=== PATIENT | female | born 1985 | race Caucasian/White ===

== ENCOUNTER 2024-05-29 17:53 | Emergency (ER) | payer BC, SELFPAY ==
[2024-05-29 17:56] VITALS: BP 152/104
[2024-05-29 18:15] LABS: % Basophils 0.3 % (0-2); % Eosinophils 1.3 % (0-6); % Immature Granulocytes 0.5 % (0-0.5); % Lymphocytes 25.8 % (20.5-51.1); % Monocytes 11.1 % (1.7-9.3); Absolute Eosinophils 0.1 10^3/uL (0-0.7); Absolute Lymphocytes 1.6 10^3/uL (1.2-3.4); Absolute Monocytes 0.7 10^3/uL (0.1-0.6); Absolute Neutrophils 3.9 10^3/uL (1.4-6.5); Hematocrit 32.5 % (37.0-47.0); Hemoglobin 10.5 g/dL (12.0-16.0); Mean Corp Hgb Conc. 32.3 g/dL (33.0-37.0); Mean Corpuscular Hgb 28.5 pg (27.0-31.0); Mean Corpuscular Volume 88.1 fL (81.0-99.0); Mean Platelet Volume 8.6 fL (7.4-10.4); Nucleated Red Blood Cells % 0 %; Platelet Count 292 10^3/uL (130-400); Red Blood Cell Count 3.69 10^6/uL (4.20-5.40); Red Cell Dist. Width 15.3 % (11.5-14.5); Urine Albumin Negative (Neg - Trace); Urine Bilirubin Negative (Negative); Urine Character Clear (Clear); Urine Glucose Negative (Negative); Urine Ketone Negative (Negative); Urine Leukocyte Negative (Negative); Urine Nitrite Negative (Negative); Urine Occult Blood Negative (Negative); Urine Specific Gravity 1.005 (<1.030); Urine Urobilinogen Negative (Neg - 1+); White Blood Cell Count 6.3 10^3/uL (4.8-10.8)
[2024-05-29 18:17] LABS: Urine Color Straw
[2024-05-29 18:25] LABS: HCG, Serum Qualitative Screen Negative
[2024-05-29 18:35] LABS: ALT (SGPT) 26 U/L (0-35); AST (SGOT) 33 U/L (14-36); Albumin 4.3 g/dl (3.5-5.0); Alkaline Phosphatase 82 U/L (38-126); Blood Urea Nitrogen 11 mg/dl (7-17); Calcium 9.4 mg/dl (8.4-10.2); Carbon Dioxide 25 mmol/L (22-30); Chloride 99 mmol/L (98-107); Glucose 95 mg/dl (70-99); Lipase 129 U/L (23-300); Potassium 3.8 mmol/L (3.5-5.1); Sodium 133 mmol/L (135-145); Total Bilirubin 0.7 mg/dl (0.2-1.3); Total Protein 7.4 g/dl (6.3-8.2); eGFR > 60.00
[2024-05-29] MEDS: TORADOL 15 MG IV (21:33)
[2024-05-29] MEDS: ZOFRAN 4 MG IV (21:33)
[2024-05-29 21:37] VITALS: BP 128/82
--- NOTE | 2024-05-29 21:48 | ED.GENMED ---
History of Present Illness
General
Chief Complaint: Abdominal Symptoms
Time Seen by Provider: 05/29/24 21:04
History of Present Illness
History of Present Illness:
39-year-old female presents the emergency department for evaluation of right lower quadrant abdominal pain that has been ongoing for the past several weeks but worse in the past 2 days. She states 'I think I strained it over the weekend'. She is
having difficulty walking and difficulty getting up from a seated position. Pain does not radiate. No fevers or chills. Prior abdominal surgical history includes a abdominoplasty.
Review of Systems
Review of Systems
Allergies reviewed?: Yes
All Other Systems: ROS reviewed and negative except as documented in HPI and ROS
Phy Exam
Physical Exam
Physical Exam:
GEN: Well appearing, NAD, WDWN
HEENT: Oral mucosa moist, no scleral icterus
Cardiac: Regular rate
Lung: No respiratory distress, no tachypnea
Abdomen: Palpable but poorly demarcated mass/induration to the right side of the patient's abdominoplasty incisional scar as well as superior medial to this. Markedly tender to palpation. Abdomen is otherwise benign
MSK: No gross deformity or injuries
Skin: Good color, no pallor or jaundice, no rashes
Neuro: AO x3, moves all extremities freely
Psych: Calm, cooperative
Course
Orders/Labs/Results
Orders:
Orders
05/29/24 18:00
Test Result ONCE
05/29/24 18:04
Complete Blood Count/With Diff Urgent
Comprehensive Metabolic Panel Urgent
HCG, Serum Qualitative Screen Urgent
Comment: Notify provider if positive test present
Lipase Urgent
Urinalysis Reflex To Culture Urgent
Date Specimen was Collected: 05/29/24
Time Specimen was Collected: 18:00
05/29/24 21:23
CT Abd/Pel (IV only)-DH only Urgent
Comment:
Reason For Exam: RLQ pain
05/29/24 21:24
Ketorolac [Toradol] 15 mg IV NOW STA
Ondansetron Injectable [Zofran] 4 mg IV NOW STA
05/29/24 23:06
Cephalexin Monohydrate [Keflex] 500 mg PO NOW STA
05/29/24 23:20
Body Fluid Cell Count Urgent
What is the Body Fluid: lower abdominal fluid collection
Date Specimen was Collected: 05/29/24
Time Specimen was Collected: 23:14
Fluid Culture with Gram Stain Urgent
ESSENCE Source: Fluid
Specimen Description:
Date Specimen was Collected: 05/29/24
Time Specimen was Collected: 23:14
Comment: lower abdominal fluid collection
Abnormal Lab Results
05/29/24
18:04
RBC 3.69 L 10^6/uL
(4.20-5.40)
Hgb 10.5 L g/dL
(12.0-16.0)
Hct 32.5 L %
(37.0-47.0)
MCHC 32.3 L g/dL
(33.0-37.0)
RDW 15.3 H %
(11.5-14.5)
Absolute Monos (auto) 0.7 H 10^3/uL
(0.1-0.6)
Monocytes % 11.1 H %
(1.7-9.3)
Sodium 133 L mmol/L
(135-145)
05/29/24 18:04
05/29/24 18:04
Vital Signs
Initial and Last Documented VS:
Initial Vital Signs
Temp Pulse Resp BP Pulse Ox
98.3 F 93 16 152/104 100
05/29/24 17:56 05/29/24 17:56 05/29/24 17:56 05/29/24 17:56 05/29/24 17:56
Last Documented Vital Signs
Temp Pulse Resp BP Pulse Ox
98.3 F 92 16 112/74 98
05/29/24 17:56 05/29/24 23:29 05/29/24 17:56 05/29/24 23:29 05/29/24 23:29
Procedures
Incision/Drainage/Joint Aspiration
Abdominal wall:
Anethesia: 1% Lidocaine with Epi
Preparation: cleaned with Hibiclens
Type of procedure: drain
Nature of site: hematoma
Description of abscess: greater than 3cm
How much fluid was obtained?: number in mls (8mL)
Fluid description: purulent and bloody
Treatment: bandaid applied
MDM/Problems Addressed
MDM/Problems Addressed:
Imaging suspicious for hematoma versus seroma versus abscess. Clinical history is more supportive of abdominal wall muscle tear with resultant hematoma. Patient was quite desperate for any degree of pain relief and requested drainage, at this
point I do not feel it is appropriate to perform incision and drainage however the area was prepped sterilely and aspirated with an 18-gauge needle with approximately 8 cc of bloody and purulent discharge. Given the quality of the discharge this
will be sent for cell count and culture and the patient will be started on empiric antibiotics
*Critical Care Note
Total Time (30-74mins, 75-104mins- exclusive of procedures): Not Applicable
ED Attending Note
-
Portions of this chart may have been created with voice recognition software.� Occasional wrong word or��sound alike� substitutions may have occurred due to the inherent limitations of voice recognition software.
Discharge Plan
Departure
Patient Disposition: Home (Routine Discharge)
Date of Disposition: 05/29/24
Time of Disposition: 23:04
Patient with high blood pressure during this ER visit?: No
Discharge Problem:
Infected hematoma
Instructions: Hematoma
Prescriptions:
New
cephalexin 500 mg capsule
500 mg PO Q8H 5 Days Qty: 15 0RF
Referrals:
Charlotte Caldwell DO [Family Provider] -
Activity Restrictions/Additional Instructions:
We will call if culture results require change in antibiotic therapy
If symptoms worsen return to the ER for reevaluation
Interventions
Interventions:
*Risk Screen - Suicide Last Done: 05/29/24 17:56
*General Assessment Last Done: 05/29/24 21:38
*Neglect/Abuse Screening Last Done: 05/29/24 17:56
*ED- Fall Risk Assessment Last Done: 05/29/24 23:29
*ED COVID-19 Vaccine History Last Done: 05/29/24 21:38
*Nursing Disposition Last Done: 05/29/24 23:29
MZ-Bpswia-Aviix[facility] Assessment Last Done: 05/29/24 21:39
Discharge Date and Time
Discharge Date/Time: 05/29/24 23:54
Print Language: [id number]
[2024-05-29] MEDS: KEFLEX 500 MG PO (23:21)
[2024-05-29 23:29] VITALS: BP 112/74
[2024-05-30 00:53] LABS: Body Fluid Mononuclear 8.5 %; Body Fluid Polymorphonuclear 91.5 %; Body Fluid WBC 91340 /CUMM
== END 2024-05-29 23:54 | disposition home or self-care (01) ==
LOC: EMR 17:53
PROVIDERS: Physician Assistant; EMERGENCY PHYSICIAN Emergency Medicine; FAMILY PHYSICIAN Family Medicine
DX: T81.41XA Infection following a procedure, superficial incisional surgical site, initial encounter (principal); X58.XXXA Exposure to other specified factors, initial encounter; Z98.84 Bariatric surgery status
CPT/HCPCS: 99284; 10060; 96374; 96375; 74177; 80053; 81003; 83690; 84703; 85025; 87015; 87070; 87205; 89051; Q9967